=== PATIENT | female | born 1990 | race Caucasian/White ===

== ENCOUNTER 2017-06-04 09:28 | Emergency (ER) | payer OTHER ==
--- NOTE | 2017-06-04 10:22 | ED ---
Back Pain - HPI Summary HPI Summary: 27 female presents with complaints of mid to low back pain that began this morning around 3am. Patient states shes been having some chronic 3/4 back pain for the past year and sometimes it gets worse to the point position and OTC medications do not help her. Patient states the pain is like someone was clawing her back. Denies burning and radiation of pain. No numbness/tingling, weakness, saddle anesthesia, and bladder/bowel incontinence. Denies fever/chills , abdominal pain, vomiting, headache, stiffness, urinary and genitalia complaints. No known trauma or injury. No recent heavy lifting. Took 2000mg of tylenol prior to arrival at one time without relief. Has not taken anything else. Has tried heat and positioning without relief. No other complaints. No PMHx other than mental health disorders. - History of Current Complaint Chief Complaint: EDBackInjuryPain Stated Complaint: BACK PAIN Time Seen by Provider: 06/04/17 09:36 Hx Obtained From: Patient Hx Last Menstrual Period: 08/15/16 Onset/Duration: Sudden Onset, Lasting Hours, Still Present, Worse Since Onset/Duration: Started Hours Ago, Still Present Timing: Constant Back Pain Location: Is Discrete @ - T8-L2 spinal and paraspinal Severity Initially: Mild Severity Currently: Severe Pain Intensity: 8 Pain Scale Used: 0-10 Numeric Character: Sharp, Aching, Throbbing Aggravating Symptom(s): Movement Alleviating Symptom(s): Nothing Associated Signs And Symptoms: Positive: Negative. Negative: Swelling, Bruising , Fever, Weakness, Numbness, Abdominal Pain, Bladder Incontinence, Bowel Incontinence, Pain with Weight Bearing - Risk Factors AAA Risk Factors: Negative TAD Risk Factors: Negative Cauda Equina Risk Factors: Negative Epidural Abscess Risk Factors: Negative - Allergies/Home Medications Allergies/Adverse Reactions: Allergies Allergy/AdvReac Type Severity Reaction Status Date / Time Penicillins Allergy Rash Verified 06/04/17 09:31 antidepressant Allergy Vomiting Uncoded 06/04/17 09:31 PMH/Surg Hx/FS Hx/Imm Hx Endocrine/Hematology History: Denies: Hx Diabetes Cardiovascular History: Denies: Hx Hypertension Respiratory History: Denies: Hx Asthma Musculoskeletal History: Reports: Hx Back Problems Psychiatric History: Reports: Hx Anxiety, Hx Depression, Other Psychiatric Issues/Disorders - Surgical History Surgery Procedure, Year, and Place: none - Immunization History Immunizations Up to Date: Yes Infectious Disease History: No Infectious Disease History: Denies: History Other Infectious Disease, Traveled Outside the [place] in Last 30 Days - Family History Known Family History: Positive: Cardiac Disease - Social History Alcohol Use: Rare Substance Use Type: Reports: None Hx Tobacco Use: Yes Smoking Status (MU): Never Smoked Tobacco Review of Systems Constitutional: Negative Cardiovascular: Negative Respiratory: Negative Gastrointestinal: Negative Genitourinary: Negative Positive: Arthralgia, Myalgia - mid back pain Skin: Negative Neurological: Negative All Other Systems Reviewed And Are Negative: Yes Physical Exam Triage Information Reviewed: Yes Vital Signs On Initial Exam: Initial Vitals Temp Pulse Resp BP Pulse Ox 97.8 F 69 20 148/92 98 06/04/17 09:31 06/04/17 09:31 06/04/17 09:31 06/04/17 09:31 06/04/17 09:31 Vital Signs Reviewed: Yes Appearance: Positive: Well-Appearing - sitting up comfortably on stretcher, No Pain Distress, Well-Nourished Skin: Positive: Warm, Skin Color Reflects Adequate Perfusion, Dry. Negative: Cold, Cyanosis @, Pale, Erythema @ Head/Face: Positive: Normal Head/Face Inspection Eyes: Positive: Conjunctiva Clear ENT: Positive: Hearing grossly normal Neck: Positive: Supple, Nontender, No Lymphadenopathy Respiratory/Lung Sounds: Positive: Clear to Auscultation, Breath Sounds Present. Negative: Rales, Rhonchi, Wheezes Cardiovascular: Positive: Normal, RRR, Pulses are Symmetrical in both Upper and Lower Extremities - 2+. Negative: Murmur, Rub, Leg Edema Left, Leg Edema Right Abdomen Description: Positive: Nontender, No Organomegaly, Soft. Negative: Bruit, CVA Tenderness (R), CVA Tenderness (L), Distended, Guarding, Hernia @, McBurney's Point Tenderness, Peritoneal Signs, Pulsatile Mass Bowel Sounds: Positive: Present Pelvic Exam: Positive: external exam normal - per patient Musculoskeletal: Positive: Normal, Strength/ROM Intact, Pain @ - on palpation of T8-L2 paraspinal muscles, minimal, Other - no crepitus, step off or obvious deformity. somewhat difficult examination due to access adipose tissue.. Negative: Interruption @, Abnormal @, Edema Left, Edema Right Neurological: Positive: Normal - neuro, Sensory/Motor Intact - sensation intact , Alert, Oriented to Person Place, Time, Reflexes Intact, NV Bundle Intact Distally, Normal Gait, Facial Symmetry, Speech Normal Psychiatric: Positive: Affect/Mood Appropriate - Rae Coma Scale Best Eye Response: 4 - Spontaneous Best Motor Response: 6 - Obeys Commands Best Verbal Response: 5 - Oriented Diagnostics - Vital Signs Vital Signs Temp Pulse Resp BP Pulse Ox 06/04/17 09:58 97.8 F 68 16 159/86 100 06/04/17 09:31 97.8 F 69 20 148/92 98 - Laboratory Result Diagrams: 06/04/17 12:20 06/04/17 11:38 Lab Statement: Any lab studies that have been ordered have been reviewed, and results considered in the medical decision making process. - Radiology thoracic/lumbosacral Xray Interpretation: No Acute Changes - MINIMAL DEGENERATIVE CHANGES. MINIMAL DEGENERATIVE CHANGES. Radiology Interpretation Completed By: Radiologist Re-Evaluation - Re-Evaluation First Eval Re-Evaluation Time: 13:30 Change: Improved - feeling better after medication, ready to be d/c rest of labs and imaging unremarkable Back Pain Course/Dx - Course Course Of Treatment: labs obtained to make sure liver and kidney function normal and to check acetaminophen level due to patient taking more than directed OTC analgesia/tylenol. Normal values. Urinalysis unremarkable. Will given toradol and norflex to help with pain. had relief. patient will be sent home with medication for pain management. No other concern for emergent etiology or other etiology other than MSK back pain. Aware of worsening signs and symptoms to watch out for. Follow up with PCP. Probable chronic pain due to overweight. Educated on exercises. - Diagnoses Differential Diagnosis/HQI/PQRI: Positive: Herniated Disc, Strain, Sprain Provider Diagnoses: Back pain Discharge - Discharge Plan Condition: Stable Disposition: HOME Patient Education Materials: Back Pain (ED) Additional Instructions: Take ibuprofen 600mg every 6-8 hours as needed for pain. Take with food. You may supplement with 1 tylenol in between. Do not take more than directed of either medication. Take muscle relaxer at bedtime. Do not drive while taking this medication. Continue heat and rest. Follow up with primary care doctor. If symptoms worsen or new symptoms develop please seek medical attention.
--- NOTE | 2017-06-04 12:03 | RAD ---
HISTORY: Back pain COMPARISONS: None VIEWS: 3, Frontal, swimmer's, and lateral views of the thoracic spine. FINDINGS: ALIGNMENT: The alignment is normal. VERTEBRAL BODIES: The vertebral body heights are normal. The interpedicular distances are normal. JOINTS: Unremarkable. INTERVERTEBRAL DISCS: There is mild loss of intervertebral disc height. SOFT TISSUE: Unremarkable OTHER: The visualized lungs are clear. IMPRESSION: UNREMARKABLE RADIOGRAPHS OF THE THORACIC SPINE
--- NOTE | 2017-06-04 12:04 | RAD ---
HISTORY: Back pain COMPARISONS: None VIEWS: 5 , Frontal, lateral, coned-down lateral sacral, and bilateral oblique views of the lumbar spine. FINDINGS: ALIGNMENT: The alignment is normal. VERTEBRAL BODIES: The vertebral body heights are normal. The interpedicular distances are normal. JOINTS: There is minimal facet hypertrophic change along the lower lumbar spine. INTERVERTEBRAL DISCS: There is mild loss of intervertebral disc height. SOFT TISSUE: Unremarkable. OTHER: The pelvis is unremarkable. The lung bases are clear. IMPRESSION: MINIMAL DEGENERATIVE CHANGES.
[2017-06-04] MEDS ORDERED: Ketorolac INJ* 60 MG/2 ML VIAL IM ONE (12:14)
[2017-06-04] MEDS ORDERED: Orphenadrine Citrate IV* 30 MG/ML 2 ML VIAL IM ONE (12:14)
[2017-06-04 12:24] LABS: Acetaminophen < 15 mcg/mL
[2017-06-04 12:29] LABS: Hematocrit 41 % (35-47); Hemoglobin 13.5 g/dl (12.0-16.0); Mean Corpuscular HGB Conc 33 g/dl (31-36); Mean Corpuscular Hemoglobin 29 pg (27-31); Mean Corpuscular Volume 87 fL (80-97); Mean Platelet Volume 9 um3 (7.4-10.4); Red Blood Count 4.73 10^6/ul (4.0-5.4); Red Cell Distribution Width 14 % (10.5-15); White Blood Count 7.7 10^3/ul (3.5-10.8)
[2017-06-04 12:54] LABS: ALT 21 U/L (7-52); AST 17 U/L (13-39); Alkaline Phosphatase 55 U/L (34-104); Anion Gap 10 mmol/L (2-11); BUN/Creatinine Ratio 16.7 (8-20); Blood Urea Nitrogen 14 mg/dL (6-24); CO2 Carbon Dioxide 22 mmol/L (22-32); Calcium 9.6 mg/dL (8.6-10.3); Chloride 106 mmol/L (101-111); EGFR African American 104.6 (>60); EGFR Non-African American 81.3 (>60); Globulin 2.9 g/dL (2-4); Glucose 86 mg/dL (70-100); Potassium 4.4 mmol/L (3.5-5.0); Sodium 138 mmol/L (133-145); Total Protein 6.9 g/dL (6.4-8.9)
[2017-06-04 14:10] VITALS: BP 113/72
== END 2017-06-04 14:09 | disposition home or self-care (01) ==
LOC: ED 09:28
DX: M54.5 Low back pain (principal); F41.9 Anxiety disorder, unspecified; F32.9 Major depressive disorder, single episode, unspecified
CPT/HCPCS: 36415; 72070; 72110; 80053; 80329; 85025; 96372; 99283; G0480; J1885; J2360

== ENCOUNTER 2017-08-21 09:32 | Emergency (ER) | payer OTHER ==
[2017-08-21 09:38] VITALS: BP 145/71
--- NOTE | 2017-08-21 10:52 | UC ---
Respiratory Complaint HPI - HPI Summary HPI Summary: Worsening cough over the past 3 weeks, chills no fever - History of Current Complaint Hx Obtained From: Patient Hx Last Menstrual Period: 08/15/16 ?: No Onset/Duration: Gradual Onset, Lasting Weeks - 3, Still Present Timing: Constant Severity Initially: Mild Severity Currently: Mild Pain Intensity: 4 Pain Scale Used: 0-10 Numeric Character: Cough: Nonproductive Aggravating Factors: Nothing Alleviating Factors: Nothing <Stacey Kendrick - Last Filed: 08/21/17 12:41> <Vandana Pfeiffer - Last Filed: 08/21/17 13:57> - History of Current Complaint Chief Complaint: UCRespiratory Stated Complaint: STUFFY NOSE, AND COUGH Time Seen by Provider: 08/21/17 10:39 - Allergies/Home Medications Allergies/Adverse Reactions: Allergies Allergy/AdvReac Type Severity Reaction Status Date / Time Penicillins Allergy Rash Verified 06/04/17 09:31 antidepressant Allergy Vomiting Uncoded 08/21/17 09:38 PMH/Surg Hx/FS Hx/Imm Hx Previously Healthy: No Psychological History: Depression - Surgical History Surgical History: None Surgery Procedure, Year, and Place: none - Family History Known Family History: Positive: Cardiac Disease - Social History Occupation: Employed Part-time Lives: With Family Alcohol Use: Rare Substance Use Type: None Smoking Status (MU): Never Smoked Tobacco <Stacey Kendrick - Last Filed: 08/21/17 12:41> Review of Systems Constitutional: Negative Skin: Negative Eyes: Negative ENT: Negative Respiratory: Cough Cardiovascular: Negative Gastrointestinal: Negative Genitourinary: Negative Motor: Negative Neurovascular: Negative Musculoskeletal: Negative Neurological: Negative Psychological: Negative Is Patient Immunocompromised?: No All Other Systems Reviewed And Are Negative: Yes <Stacey Kendrick - Last Filed: 08/21/17 12:41> Physical Exam Triage Information Reviewed: Yes Appearance: Well-Appearing, No Pain Distress, Obese Vital Signs: Initial Vital Signs Temp 97.7 F 08/21/17 09:35 Pulse 100 08/21/17 09:35 Resp 18 08/21/17 09:35 BP 145/71 08/21/17 09:35 Pulse Ox 98 08/21/17 09:35 Vital Signs Reviewed: Yes Eye Exam: Normal Eyes: Positive: Conjunctiva Clear ENT Exam: Normal ENT: Positive: Normal ENT inspection, Hearing grossly normal, Pharynx normal, TMs normal, Uvula midline. Negative: Nasal congestion, Nasal drainage, Tonsillar swelling, Tonsillar exudate, Trismus, Muffled voice, Hoarse voice, Sinus tenderness Dental Exam: Normal Neck exam: Normal Neck: Positive: Supple, Nontender, No Lymphadenopathy Respiratory Exam: Normal Respiratory: Positive: Chest non-tender, Lungs clear, Normal breath sounds, No respiratory distress, No accessory muscle use Cardiovascular Exam: Normal Cardiovascular: Positive: RRR, No Murmur, Pulses Normal, Brisk Capillary Refill Musculoskeletal Exam: Normal Musculoskeletal: Positive: Strength Intact, ROM Intact, No Edema Neurological Exam: Normal Neurological: Positive: Alert, Muscle Tone Normal Psychological Exam: Normal Skin Exam: Normal <Stacey Kendrick - Last Filed: 08/21/17 12:41> Vital Signs: Initial Vital Signs Temp 97.7 F 08/21/17 09:35 Pulse 100 08/21/17 09:35 Resp 18 08/21/17 09:35 BP 145/71 08/21/17 09:35 Pulse Ox 98 08/21/17 09:35 <Vandana Pfeiffer - Last Filed: 08/21/17 13:57> UC Diagnostic Evaluation - Laboratory O2 Sat by Pulse Oximetry: 98 <Stacey Kendrick - Last Filed: 08/21/17 12:41> Respiratory Course/Dx - Course Course Of Treatment: zithromax, albuterol, tessalon, increase fluids, rest follow with pcp - Differential Dx/Diagnosis Provider Diagnoses: Bronchitis with bronchospasm <Stacey Kendrick - Last Filed: 08/21/17 12:41> Discharge <Stacey Kendrick - Last Filed: 08/21/17 12:41> <Vandana Pfeiffer - Last Filed: 08/21/17 13:57> - Discharge Plan Condition: Stable Disposition: HOME Prescriptions: Albuterol HFA INHALER* [Ventolin HFA Inhaler*] 2 puff INH Q4H PRN #1 mdi PRN Reason: cough/chest tightness Azithromycin TAB* [Zithromax TAB (Z-GIBSON) 250 mg #6 tabs] 2 tab PO .TODAY, THEN 1 DAILY #1 gibson Benzonatate CAP* [Tessalon 100 MG CAP*] 100 mg PO TID #30 cap Patient Education Materials: How to Use a Metered-Dose Inhaler (ED), Acute Bronchitis (ED), Hypertension (ED) Forms: *Work Release Referrals: Jin Oviedo NP [Primary Care Provider] - 2 Weeks Attestation Statement User Type: Provider - I was available for consult. This patient was seen by the LIA. The patient was not presented to, seen by, or examined by me. -Sweetie <Vandana Pfeiffer - Last Filed: 08/21/17 13:57>
== END 2017-08-21 11:05 | disposition home or self-care (01) ==
LOC: UCEAST 09:32
DX: J40 Bronchitis, not specified as acute or chronic (principal); Z88.0 Allergy status to penicillin; Z88.8 Allergy status to other drugs, medicaments and biological substances
CPT/HCPCS: 99212; G0463

== ENCOUNTER 2019-10-25 08:32 | Emergency (ER) | payer OTHER ==
--- OUTSIDE RECORDS SUMMARY | 2019-10-25 08:40 | XMS REPORT ---
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 Dysthymia [id number] SNOMED-CT Active 3-22 Relevant diagnostic tests/laboratory data Narrative No Information Procedures Procedure Code CodeSystem Target Date of Status Service Device Device Device Name Site Procedure Delivery Code Name UID Location Psychother 8089650 SNOMED-CT () 2019-08-02 completed Mental apy, 45 4 [facility]- minutes [place] with [address], [id number] Psychother [id number] SNOMED-CT () 2019-04-26 completed Mental apy, 45 4 [facility]- minutes [place] with [address], [id number] Psychother [id number] SNOMED-CT () 2019-06-07 completed Mental apy, 45 4 Health- minutes [facility] with [facility] patient [address] [place] [address], [id number] Psychother [id number] SNOMED-CT () 2019-03-08 completed Mental apy, 45 4 Health- minutes [place] with [facility] patient [address] [place] [address], [id number] SNOMED-CT () 2019-01-18 completed Mental Health- [place], [id number] SNOMED-CT () 2019-02-15 completed Mental Health[address], [id number] SNOMED-CT () 2019-02-[address], [id number] SNOMED-CT () 2019-03-[address], [id number] SNOMED-CT () 2019-05-[address], [id number] SNOMED-CT () 2019-05-[address], [id number] SNOMED-CT () 2019-05-[address], [id number] SNOMED-CT () 2019-06-[address], [id number] SNOMED-CT () 2019-06-[address], [id number] SNOMED-CT () 2019-08-[address], [id number] SNOMED-CT () 2019-04-[address], [id number] Encounters/Encounter Diagnoses Encounter Name Encounter Diagnosis Diagnosis Diagnosis Date of Service Code Code Name CodeSystem Diagnosis Delivery Location [facility] [id number] Dysthymia SNOMED-CT 2019-08-16 [facility] [address] [place] [address], [id number] Vital Signs No Information Social History Element Description Description Start End Code CodeSystem AdditionalInfo Date Date SexAssignedAtBirth Female 1989- F AdministrativeGender 05-02 Hospital Discharge Instructions Reason For Referral Medical Equipment FDA Assessments
[2019-10-25 08:53] VITALS: BP 140/101
--- NOTE | 2019-10-25 10:13 | UC ---
Throat Pain/Nasal David HPI - HPI Summary HPI Summary: 29-year-old female presents with 2 week history of nasal congestion and sinus pain. Symptoms associated with postnasal drip, bilateral ear fullness, sore throat, and a dry nonproductive cough. Denies fever, chills, chest pain, or shortness of breath. - History of Current Complaint Chief Complaint: UCGeneralIllness Stated Complaint: SINUS CONGESTION,COUGH Time Seen by Provider: 10/25/19 10:05 Hx Obtained From: Patient Hx Last Menstrual Period: 08/15/16 Pain Intensity: 0 - Allergies/Home Medications Allergies/Adverse Reactions: Allergies Allergy/AdvReac Type Severity Reaction Status Date / Time Penicillins Allergy Rash Verified 10/25/19 08:54 antidepressant Allergy Vomiting Uncoded 08/21/17 09:38 PMH/Surg Hx/FS Hx/Imm Hx Previously Healthy: Yes - Denies significant PMH - Surgical History Surgical History: None Surgery Procedure, Year, and Place: none - Family History Known Family History: Positive: Cardiac Disease - Social History Occupation: Employed Full-time Lives: Alone Alcohol Use: Rare Substance Use Type: None Smoking Status (MU): Never Smoked Tobacco Review of Systems All Other Systems Reviewed And Are Negative: Yes Constitutional: Negative: Fever, Chills Eyes: Negative: Drainage, Eye Redness ENT: Positive: Sore Throat, Nasal Discharge, Sinus Congestion, Sinus Pain/ Tenderness Respiratory: Positive: Cough. Negative: Shortness Of Breath Cardiovascular: Negative: Chest Pain Gastrointestinal: Positive: Negative Genitourinary: Positive: Negative Neurovascular: Positive: Negative Musculoskeletal: Positive: Negative Neurological: Positive: Negative Is Patient Immunocompromised?: No Physical Exam - Summary Physical Exam Summary: GENERAL APPEARANCE: Alert and cooperative morbidly obese female who appears to be in no acute distress. EYES: Conjunctiva clear. No drainage. EARS: External auditory canals and tympanic membranes clear, hearing grossly intact. NOSE: No nasal discharge. Moderate nasal congestion. Maxillary sinus tenderness. THROAT: Pharyngeal cobblestoning with post-nasal drip. No tonsilar inflammation , swelling, exudate, or lesions. Uvula midline. NECK: Neck supple, non-tender without lymphadenopathy. CARDIAC: Normal S1 and S2. No S3, S4 or murmurs. Rhythm is regular. There is no peripheral edema, cyanosis or pallor. Extremities are warm and well perfused. Capillary refill is less than 2 seconds. Peripheral pulses intact. LUNGS: Clear to auscultation without rales, rhonchi, wheezing or diminished breath sounds. Dry, non-productive cough. ABDOMEN: Positive bowel sounds. Soft, nondistended, nontender. No guarding or rebound. No masses or hepatosplenomegally. MUSKULOSKELETAL: ROM intact to all extremities. No joint erythema or tenderness. Normal muscular development. Normal gait. SKIN: Skin normal color, texture and turgor with no lesions or eruptions. Triage Information Reviewed: Yes Vital Signs: Initial Vital Signs Temp 97.8 F 10/25/19 08:51 Pulse 110 10/25/19 08:51 Resp 20 10/25/19 08:51 BP 140/101 10/25/19 08:51 Pulse Ox 99 10/25/19 08:51 Vital Signs Reviewed: Yes Throat Pain/Nasal Course/Dx - Course Course Of Treatment: 29-year-old female presents with 2 week history of nasal congestion and sinus pain. Symptoms associated with postnasal drip, bilateral ear fullness, sore throat, and a dry nonproductive cough. Denies fever, chills, chest pain, or shortness of breath. Afebrile. Hypertensive and mildly tachycardic otherwise vital signs stable. Patient had moderate nasal congestion, maxillary sinus tenderness, normal bilateral TMs, pharyngeal cobblestoning with postnasal drip, no cervical lymphadenopathy, clear bilateral breath sounds, dry nonproductive cough, and otherwise unremarkable exam. Considering the duration of her symptoms will treat her for an acute sinusitis with doxycycline 100 mg twice a day 7 days as well as symptomatic treatment. She is to follow-up with her primary care provider in 5-7 days if symptoms are not improving. Anticipatory guidance and warning symptoms were reviewed with the patient. Verbalizes understanding and agrees with plan of care. - Differential Dx/Diagnosis Differential Diagnosis/HQI/PQRI: Sinusitis, URI, Other - Bronchitis, PNA Provider Diagnosis: Acute sinusitis Discharge ED - Sign-Out/Discharge Documenting (check all that apply): Patient Departure All imaging exams completed and their final reports reviewed: No Studies - Discharge Plan Condition: Stable Disposition: HOME Prescriptions: Doxycycline Hyclate 100 mg PO BID 7 Days #14 tablet Fluticasone NASAL SPRAY 50MCG* [Flonase NASAL SPRAY 50MCG*] 2 spray BOTH NARES DAILY #1 btl Patient Education Materials: Sinusitis (ED) Referrals: Jin Oviedo NP [Primary Care Provider] - 5 Days Additional Instructions: Your history and exam are consistent with a sinus infection. Considering the duration of your symptoms we will start you on an antibiotic to treat the infection. Start doxycycline 100 mg twice a day for 7 days. Do not drink milk, eat milk products, or takes supplements containing calcium for at least 2 hours before after taking this medication as the calcium can affect the absorption. This antibiotic will also make you more sensitive to the sunlight therefore it is recommended that you try to avoid sun exposure while taking. Drink plenty of fluids to avoid dehydration especially if you are running any fever. Use a saline rinse kit such as Neti Pot or NeilMed at least twice a day to help thin secretions and promote drainage of the sinuses. Use fluticasone (Flonase) nasal spray 2 sprays each nostril once daily. Use an over the counter decongestant such as Sudafed according to directions to help with congestion. Take over the counter acetaminophen (Tylenol) or ibuprofen (Advil, Motrin) according to directions as needed for pain or fever. Follow up with your primary care provider in 5-7 days if symptoms persist. Seek immediate medical attention in the emergency room if you have fever greater than 100.5 F despite taking acetaminophen or ibuprofen, have chest pain , difficulty breathing, are unable to swallow, or have any worsening of symptoms. - Billing Disposition and Condition Condition: STABLE Disposition: Home
== END 2019-10-25 10:45 | disposition home or self-care (01) ==
LOC: UCEAST 08:32
DX: J01.90 Acute sinusitis, unspecified (principal); J02.9 Acute pharyngitis, unspecified; R05 Cough; Z88.0 Allergy status to penicillin; Z88.8 Allergy status to other drugs, medicaments and biological substances
CPT/HCPCS: 99212; G0463

== ENCOUNTER 2019-11-21 08:32 | Emergency (ER) | payer OTHER ==
--- OUTSIDE RECORDS SUMMARY | 2019-11-21 08:43 | XMS REPORT ---
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, 02-07 unspecified Relevant diagnostic tests/laboratory data Narrative No Information Procedures Procedure Code CodeSystem Target Date of Status Service Device Device Device Name Site Procedure Delivery Code Name UID Location Psychother [id number] SNOMED-CT () 2019-08-02 completed Mental apy, 45 4 Health- minutes [place] with [address], [id number] [id number] Psychother [id number] SNOMED-CT () 2019-04-26 completed Mental apy, 45 4 Health- minutes [place] with [address], [id number] Psychother [id number] SNOMED-CT () 2019-06-07 completed Mental apy, 45 4 Health- minutes [place] with [facility] patient [address] [place] [address], [id number] Psychother [id number] SNOMED-CT () 2019-03-08 completed Mental apy, 45 4 Health- minutes [place] with [facility] patient [address] [place] [address], [id number] [id number] SNOMED-CT () 2019-01-18 completed Mental Health- [place], [id number] [id number] SNOMED-CT () 2019-02-15 completed [facility], [id number] SNOMED-CT () 2019-02-[address], [id number] SNOMED-CT () 2019-03-[address], [id number] SNOMED-CT () 2019-05-[address], [id number] SNOMED-CT () 2019-05-[address], [id number] SNOMED-CT () 2019-06-[address], [id number] SNOMED-CT () 2019-04-[address], [id number] SNOMED-CT () 2019-05-[address], [id number] SNOMED-CT () 2019-06-[address], [id number] SNOMED-CT () 2019-08-[address], [id number] SNOMED-CT () 2019-09-[address], [id number] SNOMED-CT () 2019-09-[address], [id number] SNOMED-CT () 2019-10-[address], [id number] Encounters/Encounter Diagnoses Encounter Encounter Diagnosis Diagnosis Diagnosis Date of Service Name Code Code Name CodeSystem Diagnosis Delivery Location Non-Billable 99002 [id number] Dysthymia SNOMED-CT 2019-10-25 [facility] , , , Vital Signs No Information Social History Element Description Description Start End Code CodeSystem AdditionalInfo Date Date SexAssignedAtBirth Female F AdministrativeGender 05-02 Hospital Discharge Instructions Reason For Referral Medical Equipment FDA Assessments
[2019-11-21 08:44] VITALS: BP 135/79
--- NOTE | 2019-11-21 09:56 | UC ---
Respiratory Complaint HPI - HPI Summary HPI Summary: 29 yo female presents with URI symptoms. She tells me that about a month ago she developed dry cough, sinus pain/pressure/congestion, and fatigue. She figured she had a cold or the flu and took OTC cold medication with little relief. She was seen here a few weeks ago and prescribed anbx, but pt states she could not pick these up due to an insurance issue. She believes she has corrected her insurance issues and is not feeling any better in regards to her URI symptoms. She has felt feverish the last 2-3 days with a decreased appetite. Denies sore throat, SOB, chest pain, abdominal pain, vomiting - History of Current Complaint Chief Complaint: UCGeneralIllness Stated Complaint: COUGH SINUS ISSUE Time Seen by Provider: 11/21/19 09:55 Hx Obtained From: Patient Hx Last Menstrual Period: 08/15/16 Onset/Duration: Gradual Onset Timing: Constant Severity Initially: Moderate Severity Currently: Moderate Pain Intensity: 4 Pain Scale Used: 0-10 Numeric - Allergies/Home Medications Allergies/Adverse Reactions: Allergies Allergy/AdvReac Type Severity Reaction Status Date / Time Penicillins Allergy Rash Verified 11/21/19 08:45 antidepressant Allergy Vomiting Uncoded 11/21/19 08:45 PMH/Surg Hx/FS Hx/Imm Hx - Additional Past Medical History Additional PMH: None - Surgical History Surgical History: None Surgery Procedure, Year, and Place: none - Family History Known Family History: Positive: Cardiac Disease - Social History Occupation: Employed Full-time Lives: With Family Alcohol Use: Rare Substance Use Type: None Smoking Status (MU): Never Smoked Tobacco Review of Systems All Other Systems Reviewed And Are Negative: No Constitutional: Positive: Fever, Fatigue Skin: Positive: Negative Eyes: Positive: Negative ENT: Positive: Nasal Discharge, Sinus Congestion, Sinus Pain/Tenderness Respiratory: Positive: Cough Cardiovascular: Positive: Negative Gastrointestinal: Positive: Negative Neurological/Mental Status: Positive: Negative Psychological: Positive: Negative Physical Exam - Summary Physical Exam Summary: GENERAL: NAD. WDWN. No pain distress. SKIN: No rashes, sores, lesions, or open wounds. HEENT: Head: AT/NC Eyes: EOM intact. Conjunctiva clear without inflammation or discharge. Ears: Hearing grossly normal. TMs intact, no bulging, erythema, or edema. Nose: Nasal mucosa mildly swollen and erythematous with yellow/ clear discharge. TTP maxillary and frontal sinus. Positive post nasal drip Throat: Posterior oropharynx without exudates, erythema, or tonsillar enlargement. Uvula midline. NECK: Supple. Nontender. No lymphadenopathy. CHEST: CTAB. No r/r/w. No accessory muscle use. Breathing comfortably and in no distress. CV: RRR. Pulses intact. NEURO: Alert. PSYCH: Age appropriate behavior. Triage Information Reviewed: Yes Vital Signs: Initial Vital Signs Temp 98 F 11/21/19 08:42 Pulse 100 11/21/19 08:42 Resp 20 11/21/19 08:42 BP 135/79 11/21/19 08:42 Pulse Ox 100 11/21/19 08:42 Laboratory Tests 11/21/19 10:04 Influenza B (Rapid) Positive H Vital Signs Reviewed: Yes Respiratory Course/Dx - Course Course Of Treatment: Sinusitis/bronchitis. She is flu positive, but is difficult to determine when her flu illness started given that she has been having symptoms for several weeks -- no tamiflu at this time. - Differential Dx/Diagnosis Provider Diagnosis: URI (upper respiratory infection) Discharge ED - Sign-Out/Discharge Documenting (check all that apply): Patient Departure All imaging exams completed and their final reports reviewed: No Studies - Discharge Plan Condition: Stable Disposition: HOME Prescriptions: Albuterol HFA INHALER* [Ventolin HFA Inhaler*] 1 - 2 puff INH Q6H PRN #1 mdi PRN Reason: Cough Benzonatate CAP* [Tessalon 100 MG CAP*] 100 mg PO TID PRN #21 cap PRN Reason: Cough DOXYcycline CAP(*) [DOXYcycline 100MG CAP(*)] 100 mg PO BID #14 cap Patient Education Materials: Sinusitis (ED), Upper Respiratory Infection (ED) Referrals: Jin Oviedo NP [Primary Care Provider] - Additional Instructions: If you develop a fever, shortness of breath, chest pain, new or worsening symptoms - please call your PCP or go to the ED immediately. Your blood pressure was high at todays visit. Please see your primary provider within 4 weeks for recheck and re-evaluation. - Billing Disposition and Condition Condition: STABLE Disposition: Home
[2019-11-21 10:07] LABS: Influenza B Molecular POSITIVE (Negative)
== END 2019-11-21 10:20 | disposition home or self-care (01) ==
LOC: UCEAST 08:32
DX: J06.9 Acute upper respiratory infection, unspecified (principal); Z88.0 Allergy status to penicillin; Z88.8 Allergy status to other drugs, medicaments and biological substances
CPT/HCPCS: 99212; G0463